=== PATIENT | female | born 1960 | race Caucasian/White ===

== ENCOUNTER 2019-11-08 08:27 | Emergency (ER) | payer MEDICARE, OTHER ==
[~2019-11-08] VITALS: Ht 167 cm; Wt 99.7 kg
--- NOTE | 2019-11-08 09:00 | NUR ---
WET MOUTH SWAB PROVIDED FOR PT FOR COMFORT AT THIS TIME.
[2019-11-08] MEDS ORDERED: LACTATED RINGERS 1,000 ML IV ONE (09:52)
--- NOTE | 2019-11-08 09:59 | ED General ---
General Chief Complaint: General Problems/Pain Stated Complaint: FALL Nursing Triage Note: PT PRESENTS TO ED VIA EMS FROM HOME WITH COMPLAINTS OF PROGRESSIVE WEAKNESS OVER THE PAST FEW MONTHS WITH AN INCREASE IN FALLS THIS WEEKEND. PT REPORTS HER LAST FALL BEING LAST NIGHT . STATES SHE WAS ABLE TO CRAWL TO HER CELL PHONE THIS AM TO CALL FOR HELP. PT REPORTS R KNEE AND R WRIST PAIN AFTER FALL. PT DENIES LOC. Nursing Sepsis Screen: No Definite Risk Source of Information: Patient Exam Limitations: No Limitations History of Present Illness Date Seen by Provider: Nov 08, 2019 Time Seen by Provider: 09:21 Initial Comments Here with report of fall this morning. Here by EMS. Complains of right wrist pain. Denies loss of consciousness but is unsure she hit her head. Currently GCS 15. States that she has been progressively weak over the last few months and believes that she may need to be in a intermediate. She does have home health that comes 3 days a week and follows with Dr. Rendon. States that she is currently being treated for urinary tract infection and also complains of diarrhea. Does have shortness of breath but describes it more as weakness. Denies cough. Denies sore throat or runny nose. Does appear progressively weak over previous visit. Timing/Duration: Getting Worse, Other (2 weeks but much worse this morning) Severity: Moderate Associated Systoms: No Chest Pain, No Cough, No Fever/Chills; Malaise; No Nausea/Vomiting; Shortness of Air, Weakness Allergies and Home Medications Allergies Coded Allergies: clindamycin (Verified Allergy, Unknown, 11/08/19) codeine (Verified Allergy, Unknown, 11/08/19) doxycycline (Verified Allergy, Unknown, 11/08/19) meperidine (Verified Allergy, Unknown, 11/08/19) morphine (Verified Allergy, Unknown, 11/08/19) Patient Home Medication List Home Medication List Reviewed: Yes Review of Systems Review of Systems Constitutional: see HPI; No chills, No fever; weakness EENTM: no symptoms reported Respiratory: No cough; short of breath Cardiovascular: No chest pain; edema Gastrointestinal: No abdominal pain; diarrhea; No nausea, No vomiting Genitourinary: see HPI, decreased output : No Musculoskeletal: see HPI, joint pain (right breast); No joint swelling, No muscle pain; muscle weakness Skin: No change in color; lesions (psoriasis over trunk and extremities.) Psychiatric/Neurological: Denies Headache; Weakness Hematologic/Lymphatic: No Symptoms Reported All Other Systems Reviewed Negative Unless Noted: Yes Past Ityurez-Mwmvco-Nfuomf Hx Past Med/Social Hx: Reviewed Nursing Past Med/Soc Hx Patient Social History Alcohol Use: Denies Use Recreational Drug Use: No Smoking Status: Former Smoker Former Smoker, Quit: Oct 25, 2014 Recent Foreign Travel: No Contact w/Someone Who Travel: No Recent Infectious Disease Expo: No Recent Hopitalizations: No Physical Abuse: No Sexual Abuse: No Mistreated: No Fear: No Seasonal Allergies Seasonal Allergies: No Past Medical History Surgeries: Yes (COLON RESECTION) Hysterectomy Respiratory: Yes COPD Cardiac: Yes High Cholesterol, Hypertension Neurological: Yes TIA Genitourinary: Yes UTI-Chronic Gastroesophageal Reflux, Diverticulosis, Ulcer Musculoskeletal: Yes Arthritis Endocrine: Yes Diabetes, Non-Insulin dep, Lupus Psychosocial: Yes Depression Integumentary: No Family Medical History Reviewed Nursing Family Hx No Pertinent Family Hx Physical Exam-Suspected Sepsis Physical Exam Vital Signs Vital Signs - First Documented 11/08/19 08:36 Temp 36.5 Pulse 82 Resp 20 B/P (MAP) 170/86 (114) Pulse Ox 94 Capillary Refill : Less Than 3 Seconds Blood Pressure Mean: 114 Height, Weight, BMI Height: '" Weight: lbs. oz. kg; 35.00 BMI Method: General Appearance: No Apparent Distress, Chronically ill, Obese HEENT: PERRL/EOMI, Pharynx Normal Neck: Non Tender, Supple Respiratory: Lungs Clear, Normal Breath Sounds Cardiovascular: Regular Rate, Rhythm, No Murmur Gastrointestinal: Non Tender, Soft Extremity: Non Tender, No Calf Tenderness, Pedal Edema (1+ lower extremities) Neurologic/Psychiatric: Alert, Oriented x3 Skin: warm/dry, other (psoriatic lesions to the trunk and extremities) Focused Exam Lactate Level 11/08/19 10:10: Lactic Acid Level 0.89 Lactic Acid Level Laboratory Tests Test 11/08/19 10:10 Lactic Acid Level 0.89 MMOL/L (0.50-2.00) Progress/Results/Core Measures Suspected Sepsis Recent Fever Within 48 Hours: No Infection Criteria Present: None New/Unexplained Altered Menta: No Sepsis Screen: No Definite Risk SIRS Temperature: Pulse: 82 Respiratory Rate: 20 Laboratory Tests 11/08/19 08:59: White Blood Count 12.8H Blood Pressure 170 /86 Mean: 114 11/08/19 10:10: Lactic Acid Level 0.89 Laboratory Tests 11/08/19 08:59: Creatinine 0.79, INR Comment 0.9, Platelet Count 513H, Total Bilirubin 0.2 Results/Orders Lab Results Laboratory Tests Test 11/08/19 08:59 11/08/19 10:10 11/08/19 12:03 Range/Units White Blood Count 12.8 H 4.3-11.0 10^3/uL Red Blood Count 3.96 3.80-5.11 10^6/uL Hemoglobin 9.0 L 11.5-16.0 g/dL Hematocrit 34 L 35-52 % Mean Corpuscular Volume 86 80-99 fL Mean Corpuscular Hemoglobin 23 L 25-34 pg Mean Corpuscular Hemoglobin Concent 26 L 32-36 g/dL Red Cell Distribution Width 16.7 H 10.0-14.5 % Platelet Count 513 H 130-400 10^3/uL Mean Platelet Volume 10.7 9.0-12.2 fL Immature Granulocyte % (Auto) 1 % Neutrophils (%) (Auto) 75 42-75 % Lymphocytes (%) (Auto) 16 12-44 % Monocytes (%) (Auto) 6 0-12 % Eosinophils (%) (Auto) 2 0-10 % Basophils (%) (Auto) 0 0-10 % Neutrophils # (Auto) 9.7 H 1.8-7.8 10^3/uL Lymphocytes # (Auto) 2.0 1.0-4.0 10^3/uL Monocytes # (Auto) 0.8 0.0-1.0 10^3/uL Eosinophils # (Auto) 0.3 0.0-0.3 10^3/uL Basophils # (Auto) 0.0 0.0-0.1 10^3/uL Immature Granulocyte # (Auto) 0.1 0.0-0.1 10^3/uL Prothrombin Time 12.3 12.2-14.7 SEC INR Comment 0.9 0.8-1.4 Activated Partial Thromboplast Time 28 24-35 SEC Sodium Level 145 135-145 MMOL/L Potassium Level 5.1 H 3.6-5.0 MMOL/L Chloride Level 98 98-107 MMOL/L Carbon Dioxide Level 37 H 21-32 MMOL/L Anion Gap 10 5-14 MMOL/L Blood Urea Nitrogen 16 7-18 MG/DL Creatinine 0.79 0.60-1.30 MG/DL Estimat Glomerular Filtration Rate > 60 BUN/Creatinine Ratio 20 Glucose Level 104 70-105 MG/DL Calcium Level 9.2 8.5-10.1 MG/DL Corrected Calcium 9.4 8.5-10.1 MG/DL Total Bilirubin 0.2 0.1-1.0 MG/DL Aspartate Amino Transf (AST/SGOT) 17 5-34 U/L Alanine Aminotransferase (ALT/SGPT) 10 0-55 U/L Alkaline Phosphatase 79 40-136 U/L Total Protein 6.7 6.4-8.2 GM/DL Albumin 3.8 3.2-4.5 GM/DL Lactic Acid Level 0.89 0.50-2.00 MMOL/L Urine Color YELLOW Urine Clarity CLEAR Urine pH 7.0 5-9 Urine Specific [place] 1.010 L 1.016-1.022 Urine Protein NEGATIVE NEGATIVE Urine Glucose (UA) NEGATIVE NEGATIVE Urine Ketones NEGATIVE NEGATIVE Urine Nitrite NEGATIVE NEGATIVE Urine Bilirubin NEGATIVE NEGATIVE Urine Urobilinogen 0.2 < = 1.0 MG/DL Urine Leukocyte Esterase NEGATIVE NEGATIVE Urine RBC (Auto) NEGATIVE NEGATIVE Urine RBC NONE /HPF Urine WBC 0-2 /HPF Urine Squamous Epithelial Cells 2-5 /HPF Urine Crystals NONE /LPF Urine Bacteria NEGATIVE /HPF Urine Casts NONE /LPF Urine Mucus SMALL H /LPF Urine Culture Indicated NO My Orders Orders - KADEN MURGUIA MD Cbc With Automated Diff (11/08/19 09:52) Comprehensive Metabolic Panel (11/08/19 09:52) Blood Culture (11/08/19 09:52) Sputum Culture (11/08/19 09:52) Urinalysis (11/08/19 09:52) Urine Culture (11/08/19 09:52) Protime With Inr (11/08/19 09:52) Partial Thromboplastin Time (11/08/19 09:52) Chest 1 View, Ap/Pa Only (11/08/19 09:52) Ed Iv/Invasive Line Start (11/08/19 09:52) Vital Signs Adult Sepsis Patie Q15M (11/08/19 09:52) O2 (11/08/19 09:52) Remove Rings In Anticipation O (11/08/19 09:52) Lactic Acid Analyzer (11/08/19 09:52) Lactated Ringers (Lr 1000 Ml Iv Solution (11/08/19 09:52) Ct Head Wo (11/08/19 09:52) Wrist, Right, 3 Views Or More (11/08/19 09:52) Ketorolac Injection (Toradol Injection) (11/08/19 11:42) General/Regular (11/08/19 Lunch) Medications Given in ED Current Medications Medications Dose Ordered Sig/Lyn Route Start Time Stop Time Status Last Admin Dose Admin Lactated Ringer's 1,000 ml @ 0 mls/hr Q0M ONCE IV 11/08/19 09:52 11/08/19 09:55 DC 11/08/19 10:23 1,000 MLS/HR Vital Signs/I&O 11/08/19 08:36 Temp 36.5 Pulse 82 Resp 20 B/P (MAP) 170/86 (114) Pulse Ox 94 Capillary Refill : Less Than 3 Seconds Blood Pressure Mean: 114 Progress Note : Progress Note Seen and evaluated. IV, labs, UA, chest x-ray, right wrist x-ray, CT head, blood cultures and lactic acid ordered. LR 1 L bolus. Monitor patient. 1141: CT as well as x-rays negative. White count is elevated. Pending UA. Patient complaining of pain. Toradol 15 mg IV ordered. Monitor patient. 1315: UA negative. Patient overall appears to have worsening debility and would benefit from inpatient rehabilitation. We have asked inpatient rehabilitation team to evaluate her and she meets qualifications and they have accepted her to the unit. I did believe this would be very beneficial for the patient as she still is of relatively young age and should do well at home after rehabilitation. Patient agreed with this. Admit inpatient rehabilitation. Diagnostic Imaging Diagonstic Imaging: CT Plain Films/CT/US/NM/MRI: head Comments [facility]. [place], [place] NAME: [facility] REC#: [id number] PT STATUS: REG ER : 1960 PHYSICIAN: KADEN MURGUIA MD ADMIT DATE: 11/08/19/ER Draft Date of Exam:11/08/19 CT HEAD WO PROCEDURE: CT head without contrast. TECHNIQUE: Multiple contiguous axial images were obtained through the brain without the use of intravenous contrast. Auto Exposure Controls were utilized during the CT exam to meet ALARA standards for radiation dose reduction. DATE: November 08, 2019. COMPARISON: CT angiography head and neck June 08, 2019. CT head without contrast May 31, 2019. INDICATION: 59-year-old female, fall. Hit head. FINDINGS: There is no identified skull fracture. There are subtle areas of low-attenuation in the periventricular and subcortical white matter most likely relating to mild changes of chronic small vessel ischemic disease. The ventricles and cerebral spinal fluid spaces are of normal size and configuration for the patient's age. There is no mass effect or midline shift. There is no acute intracranial hemorrhage. There is no abnormal extra-axial fluid collection. The visualized portions of the paranasal sinuses, mastoid air cells and middle ears are well aerated. IMPRESSION: 1. No identified acute intracranial abnormality. 2. Mild probable changes of chronic small vessel ischemic disease. Dictated on workstation # [id number] Dict: 11/08/19 1051 Trans: 11/08/19 1056 CVB [id number] Interpreted by: FORD HOLT MD Electronically signed by: [place] Imaging: Xray Plain Films/CT/US/NM/MRI: chest Comments [facility] [place] NAME: [facility] REC#: [id number] PT STATUS: REG ER : 1960 PHYSICIAN: KADEN MURGUIA MD ADMIT DATE: 11/08/19/ER Draft Date of Exam:11/08/19 CHEST 1 VIEW, AP/PA ONLY INDICATION: Weakness and falls. EXAMINATION: Frontal chest obtained at 10:49 AM COMPARISON: 10/12/2019. FINDINGS: The heart is borderline in size. There is no focal infiltrate, pneumothorax, or pleural fluid. There are stable calcific densities over the right upper lobe. There is no pneumothorax or pleural fluid. There are old right-sided rib fractures. IMPRESSION: Poor inspiration. Chronic changes with no definite acute abnormality. Dictated on workstation # [id number] Dict: 11/08/19 1105 Trans: 11/08/19 1111 [id number] Interpreted by: CARLINE RUBIO MD Electronically signed by: [place] Imaging: Xray Plain Films/CT/US/NM/MRI: other Comments [facility] [place] NAME: [facility] REC#: [id number] PT STATUS: REG ER : 1960 PHYSICIAN: KADEN MURGUIA MD ADMIT DATE: 11/08/19/ER Draft Date of Exam:11/08/19 WRIST, RIGHT, 3 VIEWS OR MORE INDICATION: Right wrist pain. TECHNIQUE: AP, oblique, and lateral views of the right wrist were obtained. FINDINGS: No fracture or acute bony abnormality is seen. There is an ulnar minus variant. IMPRESSION: No acute abnormality of the right wrist. Ulnar minus variant is noted. Dictated on workstation # [id number] Dict: 11/08/19 1103 Trans: 11/08/19 1107 [id number] Interpreted by: CARLINE RUBIO MD Electronically signed by: Departure Communication (Admissions) Time/Spoke to Admitting Phy: 13:10 Impression Primary Impression: Physical debility Additional Impression: Generalized weakness Disposition: ADMITTED INPATIENT Condition: Stable Admissions Decision to Admit Reason: Admit from ER (General) Decision to Admit/Date: Nov 08, 2019 Time/Decision to Admit Time: 13:10 Departure-Patient Inst. Referrals: JAE RENDON DO (PCP) Primary Care Physician KADEN MURGUIA MD Nov 08, 2019 09:59
[2019-11-08 10:02] LABS: BASOPHILS % (AUTO) 0 % (0-10); EOSINOPHILS # (AUTO) 0.3 10^3/uL (0.0-0.3); EOSINOPHILS % (AUTO) 2 % (0-10); HEMATOCRIT 34 % (35-52); LYMPHOCYTES % (AUTO) 16 % (12-44); MEAN CORPUSCULAR HEMOGLOBIN 23 pg (25-34); MEAN CORPUSCULAR HGB CONC 26 g/dL (32-36); MEAN CORPUSCULAR VOLUME 86 fL (80-99); MEAN PLATELET VOLUME 10.7 fL (9.0-12.2); MONOCYTES # (AUTO) 0.8 10^3/uL (0.0-1.0); MONOCYTES % (AUTO) 6 % (0-12); NEUTROPHILS # (AUTO) 9.7 10^3/uL (1.8-7.8); NEUTROPHILS % (AUTO) 75 % (42-75); PLATELET COUNT 513 10^3/uL (130-400); WHITE BLOOD COUNT 12.8 10^3/uL (4.3-11.0)
--- NOTE | 2019-11-08 10:03 | NUR ---
Popeye mcclelland in [facility] - 11/08/19 at 1018 by HLGIBBS 200 ML DRAINED FROM BLADDER AFTER ADAME INSERTION. CATH FLUSHED WITH 500 ML STERILE WATER. 520 ML DRAINED FROM ADAME.
[2019-11-08 10:05] LABS: ALBUMIN 3.8 GM/DL (3.2-4.5); CHLORIDE 98 MMOL/L (98-107); POTASSIUM 5.1 MMOL/L (3.6-5.0); SODIUM 145 MMOL/L (135-145)
[2019-11-08 10:07] LABS: CALCIUM 9.2 MG/DL (8.5-10.1); INR 0.9 (0.8-1.4); PROTHROMBIN TIME PATIENT 12.3 SEC (12.2-14.7)
[2019-11-08 10:08] LABS: GLUCOSE 104 MG/DL (70-105); TOTAL PROTEIN 6.7 GM/DL (6.4-8.2)
[2019-11-08 10:09] LABS: BILIRUBIN,TOTAL 0.2 MG/DL (0.1-1.0); CARBON DIOXIDE 37 MMOL/L (21-32)
--- NOTE | 2019-11-08 10:10 | NUR ---
PT READJUSTED FOR COMFORT AT THIS TIME. WARM BLANKETS APPLIED TO PT.
[2019-11-08 10:11] LABS: ALKALINE PHOSPHATASE 79 U/L (40-136); CREATININE SERUM 0.79 MG/DL (0.60-1.30); GFR ESTIMATED > 60
[2019-11-08 10:12] LABS: BUN/CREATININE RATIO 20
[2019-11-08 10:14] LABS: ALANINE AMINOTRANSFERASE 10 U/L (0-55)
--- NOTE | 2019-11-08 10:28 | NUR ---
LAB IN PT ROOM AT THIS TIME DRAWING CULTURES.
--- NOTE | 2019-11-08 10:56 | Diagnostic Imaging Report ---
PROCEDURE: CT head without contrast. TECHNIQUE: Multiple contiguous axial images were obtained through the brain without the use of intravenous contrast. Auto Exposure Controls were utilized during the CT exam to meet ALARA standards for radiation dose reduction. DATE: November 08, 2019. COMPARISON: CT angiography head and neck June 08, 2019. CT head without contrast May 31, 2019. INDICATION: 59-year-old female, fall. Hit head. FINDINGS: There is no identified skull fracture. There are subtle areas of low-attenuation in the periventricular and subcortical white matter most likely relating to mild changes of chronic small vessel ischemic disease. The ventricles and cerebral spinal fluid spaces are of normal size and configuration for the patient's age. There is no mass effect or midline shift. There is no acute intracranial hemorrhage. There is no abnormal extra-axial fluid collection. The visualized portions of the paranasal sinuses, mastoid air cells and middle ears are well aerated. IMPRESSION: 1. No identified acute intracranial abnormality. 2. Mild probable changes of chronic small vessel ischemic disease. Dictated by: Dictated on workstation # [id number]
--- NOTE | 2019-11-08 11:07 | Diagnostic Imaging Report ---
INDICATION: Right wrist pain. TECHNIQUE: AP, oblique, and lateral views of the right wrist were obtained. FINDINGS: No fracture or acute bony abnormality is seen. There is an ulnar minus variant. IMPRESSION: No acute abnormality of the right wrist. Ulnar minus variant is noted. Dictated by: Dictated on workstation # [id number]
--- NOTE | 2019-11-08 11:11 | Diagnostic Imaging Report ---
INDICATION: Weakness and falls. EXAMINATION: Frontal chest obtained at 10:49 AM COMPARISON: 10/12/2019. FINDINGS: The heart is borderline in size. There is no focal infiltrate, pneumothorax, or pleural fluid. There are stable calcific densities over the right upper lobe. There is no pneumothorax or pleural fluid. There are old right-sided rib fractures. IMPRESSION: Poor inspiration. Chronic changes with no definite acute abnormality. Dictated by: Dictated on workstation # [id number]
[2019-11-08] MEDS ORDERED: KETOROLAC 30 MG/ML VIAL IVP STA (11:42)
[2019-11-08 12:11] LABS: BILIRUBIN,URINE NEGATIVE (NEGATIVE); CLARITY,URINE CLEAR; COLOR,URINE YELLOW; GLUCOSE, URINE (UA) NEGATIVE (NEGATIVE); KETONES,URINE NEGATIVE (NEGATIVE); LEUKOCYTE ESTERASE ,URINE NEGATIVE (NEGATIVE); NITRITE,URINE NEGATIVE (NEGATIVE); PROTEIN,URINE NEGATIVE (NEGATIVE)
[2019-11-08 12:26] LABS: BACTERIA,URINE NEGATIVE /HPF; WBC,URINE 0-2 /HPF
--- NOTE | 2019-11-08 13:00 | NUR ---
REHAB IN PT ROOM TO EVALUATE YOUR PT AT THIS TIME.
--- NOTE | 2019-11-08 13:49 | NUR ---
IRF Evaluation Determination: Accepted Chart review and patient interview complete. Findings discussed with Dr. Tinoco - patient accepted for direct admit. Thank you for this referral.
[2019-11-08 13:56] VITALS: BP 165/79
== END 2019-11-08 14:03 | disposition other institution (70) ==
LOC: EDBD 08:33 → ER 08:33
DX: M25.531 Pain in right wrist (principal); R53.1 Weakness; R54 Age-related physical debility; I10 Essential (primary) hypertension; R40.2410 Glasgow coma scale score 13-15, unspecified time; Z87.891 Personal history of nicotine dependence; Z88.5 Allergy status to narcotic agent; Z88.1 Allergy status to other antibiotic agents; W19.XXXA Unspecified fall, initial encounter
CPT/HCPCS: 36415; 70450; 71045; 73110; 80053; 81000; 83605; 85025; 85610; 85730; 87040; 87088